=== PATIENT | female | born 1985 | race Caucasian/White ===

== ENCOUNTER → 2018-01-20 | Outpatient (CLI) | payer OTHER | LOC: COL.RAD 08:01 | DX: R11.2 Nausea with vomiting, unspecified (principal); R63.4 Abnormal weight loss; R14.2 Eructation | CPT/HCPCS: A9541 ==

== ENCOUNTER 2018-02-03 08:24 | Day surgery (SDC) | payer OTHER ==
[~2018-02-03] VITALS: Ht 180.3 cm; Wt 55.3 kg
[2018-02-03 09:13] VITALS: BP 93/53; PULSE 72; TEMP 98.3
== END 2018-02-03 09:30 | disposition home or self-care (01) ==
LOC: SDCO 08:24
DX: R63.4 Abnormal weight loss (principal); R11.2 Nausea with vomiting, unspecified; R14.2 Eructation; Z53.8 Procedure and treatment not carried out for other reasons

== ENCOUNTER 2018-03-10 06:26 | Day surgery (SDC) | payer OTHER ==
[~2018-03-10] VITALS: Ht 154.9 cm; Wt 55.6 kg
[2018-03-10] MEDS ORDERED: ZYRTEC 10MG10 MG PO (06:54)
[2018-03-10] MEDS ORDERED: FLONASE NASAL S16 GM NS (06:54)
[2018-03-10 07:03] VITALS: BP 102/71; PULSE 78; TEMP 97.7
[2018-03-10 08:05] VITALS: BP 97/78; PULSE 85; TEMP 98.1
[2018-03-10 08:20] VITALS: BP 92/65; PULSE 75
[2018-03-10 08:35] VITALS: BP 99/77; PULSE 80
== END 2018-03-10 08:50 | disposition home or self-care (01) ==
LOC: SDCO 06:26
DX: K21.0 Gastro-esophageal reflux disease with esophagitis (principal)
CPT/HCPCS: J2704; J7120